=== PATIENT | female | born 1990 | race Caucasian/White ===

== ENCOUNTER → 2017-07-02 | Outpatient (REF) | payer OTHER ==
[~2017-07-02] MED LIST: CALC-515 PO; DOCU-416 PO; IBUP800T37 PO; OXYC-865 PO; PREN-127 PO
[2017-07-02 10:37] LABS: PLATELET COUNT, AUTOMATED 220 K/uL (150-450)
== END ==
PROVIDERS: ATTEND Family Medicine
DX: J02.9 Acute pharyngitis, unspecified (principal)
CPT/HCPCS: 85025